=== PATIENT | male | born 1935 | race Caucasian/White ===

== ENCOUNTER 2021-07-06 11:16 | Emergency (ER) | payer OTHER ==
[~2021-07-06] VITALS: Ht 172.7 cm; Wt 61.2 kg
[2021-07-06] MEDS ORDERED: TDAP DIPH,PERTUSS,TET VAC/PF 0.5 ML DISP.SYRIN IM ONE ×2 (11:45→12:20)
--- NOTE | 2021-07-06 11:45 | NUR ---
PT IS IN ROOM #2A. DR WHITMAN EVALUATED THE PT.
--- NOTE | 2021-07-06 12:31 | NUR ---
DR DIAZ WAS CALLED FOR CONSULT ([phone]) ACCORDING TO DR WHITMAN ORDER.
[2021-07-06] MEDS ORDERED: HYDROCODONE/APAP 5-325MG TABLET PO ONE ×2 (13:00→15:15)
[2021-07-06] MEDS ORDERED: TAMS-3 PO (13:14)
[2021-07-06] MEDS ORDERED: ZOLP10TA2 PO (13:14)
[2021-07-06] MEDS ORDERED: HYDROCODONE/APAP 5-325MG TABLET ONE ×2 (13:22→15:26)
[2021-07-06 13:38] LABS: HEMATOCRIT 38.5 % (36.7-47.1); MEAN CORPUSCULAR HEMOGLOBIN 33.3 uug (23.8-33.4); PLATELET COUNT (AUTO) 164 K/uL (152-348)
[2021-07-06 14:30] LABS: BILIRUBIN,TOTAL 0.5 mg/dL (0.2-1.0); CREATININE 1.1 mg/dL (0.6-1.3); POTASSIUM 3.5 mmol/L (3.5-5.1); TOTAL PROTEIN, SERUM 7.8 g/dL (6.4-8.2)
[2021-07-06] MEDS ORDERED: TAMSULOSIN HCL 0.4 MG CAP.SR.24H PO ONE (15:15)
[2021-07-06] MEDS ORDERED: TAMSULOSIN HCL 0.4 MG CAP.SR.24H ONE (15:16)
--- NOTE | 2021-07-06 16:49 | NUR ---
[facility] MATTHEW, FROM [facility], CALLED WITH INFORMATION : PT IS GOING TO BE ADMITED TO [facility] , TO M/S FLOOR, ROOM #402. ADMITING MD IS DR TOMAS. PT WILL BE TRANSFERED BY "[facility]" , ERIC IS 2 HRS. PT IS RESTING IN BED COMFORTABLY. NO S/S OF SISTRESS AT THIS TIME.
--- NOTE | 2021-07-06 18:17 | NUR ---
REPORT WAS GIVEN TO [facility] M/S ADALBERTO SETHI.
--- NOTE | 2021-07-06 19:00 | NUR ---
RECEIVED REPORT FROM HILDA. PT NOTED TO BE IN BED, A/O X4, NO SOB OR LABORED BREATHING, AFEBRILE. DENIES ANY PAIN/DISCOMFORT.
--- NOTE | 2021-07-06 19:50 | NUR ---
Patient Tranfers to outside Facility Physician:THOM Location: [facility]. ROOM 402
--- NOTE | 2021-07-06 19:50 | NUR ---
[facility] UN[address] AT BEDSIDE, TAKEN PT TO [facility].
== END 2021-07-06 19:53 | disposition short-term general hospital (02) ==
LOC: ER 11:16
DX: S72.001A Fracture of unspecified part of neck of right femur, initial encounter for closed fracture (principal); Z88.1 Allergy status to other antibiotic agents; Z79.899 Other long term (current) drug therapy; Z20.822 Contact with and (suspected) exposure to COVID-19; W01.0XXA Fall on same level from slipping, tripping and stumbling without subsequent striking against object, initial encounter; Y93.89 Activity, other specified; Y92.89 Other specified places as the place of occurrence of the external cause; Y99.8 Other external cause status
CPT/HCPCS: 36415; 70030-TC; 70450; 71045; 72125; 73502; 73551; 85025; 85610; 90715; 93005; A4663

== ENCOUNTER 2021-07-16 08:41 | Emergency (ER) | payer OTHER ==
[~2021-07-16] VITALS: Ht 172.7 cm; Wt 61.7 kg
[~2021-07-16 08:41] MED LIST: TAMS-3 PO; ZOLP10TA2 PO
[2021-07-16] MEDS ORDERED: MORPHINE SULFATE 2 MG/1 ML DISP.SYRIN IV ONE ×2 (09:00→10:15)
[2021-07-16] MEDS ORDERED: NEOMY/BACITRA/POLYMYXIN B OINT UD PACKET TP ONE ×2 (09:00→09:10)
[2021-07-16] MEDS ORDERED: ONDANSETRON 4 MG/2 ML VIAL IV ONE (09:00)
--- NOTE | 2021-07-16 09:01 | NUR ---
PT IS IN ROOM #1B. DR SHARP EVALUATED THE PT.
[2021-07-16] MEDS ORDERED: ONDANSETRON 4 MG/2 ML VIAL ONE (09:09)
[2021-07-16] MEDS ORDERED: MORPHINE SULFATE 2 MG/1 ML DISP.SYRIN ONE ×2 (09:09→10:25)
[2021-07-16] MEDS ORDERED: DOCU250C14 PO (10:18)
[2021-07-16] MEDS ORDERED: HYDR-4209 PO ×2 (10:18→16:35)
[2021-07-16 12:08] LABS: HEMATOCRIT 31.8 % (36.7-47.1); MEAN CORPUSCULAR HEMOGLOBIN 33.6 uug (23.8-33.4); MEAN CORPUSCULAR VOLUME 97.4 fL (73.0-96.2); PLATELET COUNT (AUTO) 212 K/uL (152-348)
[2021-07-16 12:15] LABS: BILIRUBIN,DIRECT 0.2 mg/dL (0.0-0.2); BILIRUBIN,TOTAL 0.7 mg/dL (0.2-1.0); CREATININE 0.9 mg/dL (0.6-1.3); POTASSIUM 3.9 mmol/L (3.5-5.1)
[2021-07-16] MEDS ORDERED: MORPHINE SULFATE 4 MG/1 ML DISP.SYRIN IV ONE (12:15)
[2021-07-16] MEDS ORDERED: MORPHINE SULFATE 4 MG/1 ML DISP.SYRIN ONE (12:22)
--- NOTE | 2021-07-16 14:20 | NUR ---
Received telephone call from Molly/Jazmyn case consultant who stated she would like to me ask the pt if he is okay with being discharged to [facility] ([facility]NF) in [place]. I spoke with the pt, he stated he has been at that facility before and he is okay with going back there. Jazmyn case consultant stated she will make the arrangements and call back with further information.
--- NOTE | 2021-07-16 16:41 | NUR ---
REPORT WAS GIVEN TO NURSE JAMES FROM [facility]. PT WAS D/C'd TO [facility] VIA [facility].
[2021-07-16 16:49] VITALS: BP 118/63
== END 2021-07-16 16:50 ==
LOC: ER 08:46
DX: S42.202A Unspecified fracture of upper end of left humerus, initial encounter for closed fracture (principal); W01.0XXA Fall on same level from slipping, tripping and stumbling without subsequent striking against object, initial encounter; Y92.019 Unspecified place in single-family (private) house as the place of occurrence of the external cause; Z96.649 Presence of unspecified artificial hip joint; D64.9 Anemia, unspecified; R91.8 Other nonspecific abnormal finding of lung field; Z20.822 Contact with and (suspected) exposure to COVID-19; Z87.01 Personal history of pneumonia (recurrent); M50.322 Other cervical disc degeneration at C5-C6 level; M48.02 Spinal stenosis, cervical region; R94.31 Abnormal electrocardiogram [ECG] [EKG]
CPT/HCPCS: 29105; 36415; 70450; 71045; 72125; 73030; 80048; 80076; 85025; 85730; 87426; 93005; 96374; 96375; 96376; 99285; J2270 ×3; J2405; A4663; J7030

== ENCOUNTER 2021-10-24 13:18 | Emergency (ER) | payer OTHER ==
[~2021-10-24] VITALS: Ht 172.7 cm; Wt 57.6 kg
[~2021-10-24 13:18] MED LIST changes: +DOCU250C14 PO; +HYDR-4209 PO
[2021-10-24] MEDS ORDERED: NEOMY/BACITRA/POLYMYXIN B OINT UD PACKET TP ONE ×2 (14:26→14:30)
--- NOTE | 2021-10-24 14:43 | NUR ---
PT IS IN ROOM #1B. DR SHAPR EVALUATED THE PT.
--- NOTE | 2021-10-24 16:58 | NUR ---
PT WAS EVALUATED BY DR SHARP. PT WAS D/C'd TO HOME. D/C INSTRUCTIONS GIVEN TO THE PT BY DR SHARP. NO BLEEDING. DRESSING IS INTACT. GAIT IS STABLE.
[2021-10-24 17:04] VITALS: BP 136/84
== END 2021-10-24 17:05 | disposition home or self-care (01) ==
LOC: ER 13:18
DX: S00.83XA Contusion of other part of head, initial encounter (principal); S60.511A Abrasion of right hand, initial encounter; W18.30XA Fall on same level, unspecified, initial encounter; Y92.89 Other specified places as the place of occurrence of the external cause; Z96.649 Presence of unspecified artificial hip joint; R03.0 Elevated blood-pressure reading, without diagnosis of hypertension; M50.30 Other cervical disc degeneration, unspecified cervical region
CPT/HCPCS: 70450; 72125; A4663